=== PATIENT | male | born 1965 | race Hispanic/Latino ===

== ENCOUNTER 2021-05-14 17:08 | Emergency (ER) | payer OTHER ==
[~2021-05-14] VITALS: Ht 182.9 cm; Wt 86.2 kg
[2021-05-14 19:01] VITALS: BP 143/75
[2021-05-14 20:16] VITALS: BP 147/80
[2021-05-14] MEDS ORDERED: IBUP-2070 PO (20:40)
[2021-05-14] MEDS ORDERED: ACET-66 PO (20:40)
[2021-05-14 21:29] VITALS: BP 124/74
== END 2021-05-14 21:37 | disposition home or self-care (01) ==
LOC: EDH 17:08
DX: S93.491A Sprain of other ligament of right ankle, initial encounter (principal); Z79.899 Other long term (current) drug therapy; X50.1XXA Overexertion from prolonged static or awkward postures, initial encounter; Y93.89 Activity, other specified; Y92.89 Other specified places as the place of occurrence of the external cause; Y99.0 Civilian activity done for income or pay
CPT/HCPCS: 29515; 73610; 73630